=== PATIENT | female | born 1955 | race Caucasian/White ===

== ENCOUNTER 2017-01-20 07:46 | Emergency (ER) | payer OTHER ==
[~2017-01-20 07:46] MED LIST: CIPRO PO; DICLOFENAC SOD; DYAZIDE 37.5/251 CAP; FLEXERIL; FLONASE 0.05% N16 G1 INH; LIPITOR PO; LORTAB 5/500 TA1 TA1 PO; LORTAB 7.51 TAB 7.5/ PO; MUCINEX DM1 TAB.SR . PO; PYRIDIUM PO; ULTRAM; VIBRAMYCIN100 M1 PO; ZITHROMAX1 G/PKT PO; ZYRTEC; [UNRECOGNIZED DRUG - OTHER]
== END 2017-01-20 09:15 | disposition home or self-care (01) ==
LOC: CED 07:46
DX: J06.9 Acute upper respiratory infection, unspecified (principal); J01.00 Acute maxillary sinusitis, unspecified; J01.20 Acute ethmoidal sinusitis, unspecified; I10 Essential (primary) hypertension; Z88.0 Allergy status to penicillin
CPT/HCPCS: 99282

== ENCOUNTER 2017-02-02 08:02 | Emergency (ER) | payer OTHER | END 2017-02-02 08:39 | disposition home or self-care (01) | LOC: CED 08:02 | DX: J01.91 Acute recurrent sinusitis, unspecified (principal); I10 Essential (primary) hypertension; Z88.0 Allergy status to penicillin; Z98.51 Tubal ligation status | CPT/HCPCS: 99282 ==

== ENCOUNTER 2017-03-31 09:40 | Emergency (ER) | payer OTHER ==
--- NOTE | ~2017-03-31 | EKG ---
PATIENT: EDMUND CAMPOS UNIT #: [id number] Ventricular Rate: 86 BPM Atrial Rate: 86 BPM P-R Interval: 136 ms QRS Duration: 86 ms Q-T Interval: 380 ms QTC Calculation(Bezet): 454 ms P Richton: 64 degrees Calculated R Richton: 43 degrees Calculated T Richton: 39 degrees Diagnosis Line: Normal sinus rhythm Diagnosis Line: Minimal voltage criteria for LVH, may be normal Diagnosis Line: variant Diagnosis Line: Nonspecific T wave abnormality Diagnosis Line: Abnormal ECG Diagnosis Line: When compared with ECG of 05-FEB-2016 11:58, Diagnosis Line: No significant change was found Diagnosis Line: Confirmed by JANEY KHAN MD ([id number]) on Diagnosis Line: 04/01/2017 8:56:37 AM INTERPRETING MD: ERIN NAIR
--- NOTE | ~2017-03-31 | CR72 ---
[facility] A Service of [facility] RADIOLOGY TEXT RESULTS PATIENT: EDMUND CAMPOS LOCATION: [facility] : 53 UNIT #: [id number] AGE: [address]: Sekou Gardner MD SEX: F ORDER DR: [id number] [facility] [address]. [place], [place] [address] [id number] MR#: [id number] Acc #: [id number] NAME: EDMUND CAMPOS : 1955 SEX: F STUDY DATE/TIME: 03/31/2017 10:25 UNIT: [facility] ROOM: STUDY DESCRIPTION: CR Chest Single View Portable Attending Physician: Sekou Gardner M.D. Ordering Physician: Sekou Gardner M.D. Primary Care Physician: [facility]. MEDICAL IMAGING REPORT This report is preliminary unless electronic signature is present EXAM Portable chest. INDICATIONS Dizziness and shortness of air today. PROCEDURE Frontal view chest. COMPARISON 11/15/2014 FINDINGS Severe scoliotic curvature similar to the previous study. Heart size is unchanged and there is no new dense consolidation. No visible pleural fluid or pneumothorax. IMPRESSION Severe scoliosis, but no definite active process. No appreciable change from 11/15/2014. Dictated by... Aroldo Rodriguez M.D. THIS IS AN ELECTRONICALLY VERIFIED REPORT Aroldo Rodriguez M.D. at 04/02/2017 5:01 PM EENish/moses TD: 03/31/2017 20:46 JOB #: [id number] MEDICAL IMAGING REPORT [facility] A Service of [facility] RADIOLOGY TEXT RESULTS PATIENT: EDMUND CAMPOS LOCATION: [facility] : 53 UNIT #: [id number] AGE: [address]: Sekou Gardner MD SEX: F ORDER DR: Page 1 of 1 COPY
[2017-03-31 10:45] LABS: BASOPHIL# 0.1 X10e3 (0-0.3); BASOPHIL% 0.5 % (0-2.5); EOSINOPHIL# 0.1 X10e3 (0-0.7); EOSINOPHIL% 0.7 % (0.0-7.0); HEMOGLOBIN 13.7 gm/dL (12.0-16.0); LYMPHOCYTE# 1.5 X10e3 (1.0-3.5); LYMPHOCYTE% 15.3 % (17.0-45.0); MEAN CELL VOLUME 91.5 FL (83-96); MEAN CORPUSCULAR HEMOGLOBIN 29.8 PG (28-34); MEAN CORPUSCULAR HGB CONC 32.5 g/dL (30-36); MEAN PLATELET VOLUME 9.2 FL (6.5-11.5); MONOCYTE# 0.4 X10e3 (0-1.0); MONOCYTE% 4.3 % (3.0-12.0); NEUTROPHIL# 7.6 X10e3 (1.5-7.1); NEUTROPHIL% 79.2 % (40-75); PLATELET COUNT 320 X10e3 (140-420); RED BLOOD COUNT 4.59 X10e (3.90-5.30); RED CELL DISTRIBUTION WIDTH 13.4 % (11.0-15.5); WHITE BLOOD COUNT 9.6 X10e3 (4.0-10.5)
[2017-03-31 10:48] LABS: DIFF IND NO
[2017-03-31 10:53] LABS: URINE SOURCE CLEAN CATCH
[2017-03-31 10:59] LABS: URINE APPEARANCE TURBID; URINE BILIRUBIN NEG (NEG); URINE BLOOD NEG (NEG); URINE COLOR YELLOW; URINE GLUCOSE NEG (NEG); URINE KETONE NEG (NEG); URINE LEUKOCYTE ESTERASE 2+ (NEG); URINE NITRATE NEG (NEG); URINE PROTEIN 1+ (NEG); URINE SPECIFIC GRAVITY 1.017 (1.003-1.035); URINE UROBILINOGEN 0.2 MG/DL (NEG)
[2017-03-31 11:01] LABS: CULTURE INDICATED? YES; URINE BACTERIA AUWI 3+ (NEGATIVE); URINE SQUAMOUS EPITHELIAL CELL MANY /[HPF]
[2017-03-31 11:01] LABS: POC - TROPONIN <0.05 ng/mL (<=0.05)
[2017-03-31 11:16] LABS: ALBUMIN SERUM 4.2 g/dL (3.5-5.0); BILIRUBIN, DIRECT 0.1 mg/dL (0.0-0.2); BILIRUBIN,INDIRECT 0.7 mg/dL (0.0-0.9); BILIRUBIN,TOTAL 0.8 mg/dL (0.2-2.0); CALCIUM SERUM 9.7 mg/dL (8.4-10.2); GLOM FILT RATE Estimated 59.9 mL/min (>60); POTASSIUM 3.3 mmol/L (3.5-5.1); PROTEIN TOTAL SERUM 8.3 g/dL (6.0-8.3)
[2017-03-31 12:43] LABS: POC - CKMB 1.1 ng/mL (0.0-7.9); POC - TROPONIN <0.05 ng/mL (<=0.05)
== END 2017-03-31 13:10 | disposition home or self-care (01) ==
LOC: CED 09:40
PROVIDERS: Emergency Medicine
DX: R42 Dizziness and giddiness (principal); F41.9 Anxiety disorder, unspecified; I10 Essential (primary) hypertension; Z88.0 Allergy status to penicillin
CPT/HCPCS: 36415; 71010; 80048; 80076; 81003; 82553; 82947; 84484; 85025; 87086; 93005; 99284